=== PATIENT | male | born 1985 ===

== ENCOUNTER 2017-07-30 04:33 | Emergency (ER) | payer SELFPAY ==
[2017-07-30] MEDS ORDERED: Sodium Chloride 0.9% 1,000 ML IV STA (05:01)
--- NOTE | 2017-07-30 05:05 | ED PDOC ---
HPI: General Adult Time Seen by Provider: 07/30/17 04:50 Chief Complaint (Nursing): Abdominal Pain Chief Complaint (Provider): fever History Per: Patient History/Exam Limitations: no limitations Onset/Duration Of Symptoms: Hrs (14) Current Symptoms Are (Timing): Still Present Additional History Per: Patient Additional Complaint(s): 32 y/o male presents with fever x 14 hours. Patient states he was at work when fever started, took Tylenol then started developed generalized abdominal pain and vomiting. Patient also notes soft non bloody stools. Denies cough, congestion, chest pain, shortness of breath, palpitations, urinary symptoms, recent travel. Patients daughter sick with similar. Past Medical History Reviewed: Historical Data, Nursing Documentation, Vital Signs Vital Signs: Last Vital Signs Temp 101.9 F H 07/30/17 04:47 Pulse 106 H 07/30/17 04:47 Resp 18 07/30/17 04:47 BP 141/81 07/30/17 04:47 Pulse Ox 96 07/30/17 05:05 - Medical History PMH: No Chronic Diseases - Surgical History Surgical History: No Surg Hx - Family History Family History: States: No Known Family Hx - Living Arrangements Living Arrangements: With Family - Allergies Allergies/Adverse Reactions: Allergies Allergy/AdvReac Type Severity Reaction Status Date / Time shellfish derived Allergy RASH Verified 07/30/17 04:46 Review of Systems ROS Statement: Except As Marked, All Systems Reviewed And Found Negative Constitutional: Positive for: Fever, Chills Gastrointestinal: Positive for: Nausea, Vomiting, Abdominal Pain Physical Exam - Reviewed Nursing Documentation Reviewed: Yes Vital Signs Reviewed: Yes - Physical Exam Appears: Positive for: Well, Non-toxic, No Acute Distress Head Exam: Positive for: ATRAUMATIC, NORMAL INSPECTION, NORMOCEPHALIC Skin: Positive for: Normal Color Eye Exam: Positive for: Normal appearance ENT: Positive for: Normal ENT Inspection Cardiovascular/Chest: Positive for: Regular Rate, Rhythm Respiratory: Positive for: Normal Breath Sounds Gastrointestinal/Abdominal: Positive for: Normal Exam, Bowel Sounds, Soft Back: Positive for: Normal Inspection Extremity: Positive for: Normal ROM Neurologic/Psych: Positive for: Alert, Oriented - Laboratory Results Result Diagrams: 07/30/17 05:16 07/30/17 05:16 - ECG O2 Sat by Pulse Oximetry: 96 Disposition - Clinical Impression Clinical Impression: Abdominal pain, Fever - Disposition Disposition Time: 06:00 Condition: STABLE Forms: [employer] (Ukrainian)
[2017-07-30 05:28] LABS: VENOUS BLOOD GAS BASE EXCESS 1.8 mmol/L (0.0-2.0); VENOUS BLOOD GAS PCO2 37 mmHg (40-60); VENOUS BLOOD GAS PO2 48 mm/Hg (30-55); VENOUS BLOOD PH 7.45 (7.32-7.43)
[2017-07-30 05:38] LABS: BASO % 0.3 % (0.0-2.0); HEMOGLOBIN 15.4 g/dL (12.0-18.0); LYMPH # 1.3 K/uL (1.0-4.3); LYMPH % 7.7 % (20.0-40.0); MEAN CELL VOLUME 86.4 fl (80.0-94.0); MEAN CORPUSCULAR HEMOGLOBIN 29.4 pg (27.0-31.0); MEAN CORPUSCULAR HGB CONC 34.1 g/dL (33.0-37.0); MEAN PLATELET VOLUME 7.7 fl (7.2-11.7); MONO # 1.2 K/uL (0.0-0.8); MONO % 7.2 % (0.0-10.0); NEUT # 13.9 K/uL (1.8-7.0); NEUT % 84.8 % (50.0-75.0); NRBC % 0.4 % (0.0-0.0); PLATELET COUNT 233 K/uL (130-400); RBC 5.23 Mil/uL (4.40-5.90); RED CELL DISTRIBUTION WIDTH 13.2 % (11.5-14.5); WHITE BLOOD COUNT 16.4 K/uL (4.8-10.8)
[2017-07-30] MEDS ORDERED: Iohexol 240 (50 ml) PO ONE (06:05)
[2017-07-30 06:08] LABS: ALB/GLOB RATIO 1.4 (1.0-2.1); ALBUMIN 4.5 g/dL (3.5-5.0); ALT/SGPT 52 U/L (21-72); AST/SGOT 35 U/L (17-59); BLOOD UREA NITROGEN 15 mg/dl (9-20); CALCIUM 9.3 mg/dL (8.4-10.2); GFR AFRICAN-AMERICAN > 60; GFR NON-AFRICAN AMERICAN > 60; LIPASE 57 U/L (23-300)
[2017-07-30] MEDS ORDERED: Iohexol 240 (50 ml) ONE (06:45)
[2017-07-30 06:53] LABS: URINE BILIRUBIN NEGATIVE (NEGATIVE); URINE BLOOD NEGATIVE (NEGATIVE); URINE CLARITY SLIGHTY-CLOUDY (Clear); URINE COLOR YELLOW (YELLOW); URINE GLUCOSE (UA) NEG (Normal); URINE LEUKOCYTE ESTERASE NEG Leu/uL (Negative); URINE NITRATE NEGATIVE (NEGATIVE); URINE PROTEIN 30 mg/dL (NEGATIVE); URINE UROBILINOGEN 0.2-1.0 mg/dL (0.2-1.0)
[2017-07-30] MEDS ORDERED: Iohexol 300 100 ML IJ ONE (08:18)
[2017-07-30] MEDS ORDERED: Sodium Chloride 0.9% 50 ML IV ONE (08:19)
[2017-07-30 08:23] VITALS: RESP 14; O2SAT 100
--- NOTE | 2017-07-30 10:26 | CT ---
PROCEDURE: CT Abdomen and Pelvis with contrast HISTORY: fever, abd pain COMPARISON: None. TECHNIQUE: Contrast dose: 100 mL Omnipaque 300 Radiation dose: Total exam DLP = 993.17 mGy-cm. This CT exam was performed using one or more of the following dose reduction techniques: Automated exposure control, adjustment of the mA and/or kV according to patient size, and/or use of iterative reconstruction technique. FINDINGS: LOWER THORAX: Unremarkable. LIVER: Unremarkable. No gross lesion or ductal dilatation. GALLBLADDER AND BILE DUCTS: Unremarkable. PANCREAS: Unremarkable. No gross lesion or ductal dilatation. SPLEEN: Normal size. Incidental 7 mm nonspecific low attenuation lesion. ADRENALS: Unremarkable. No mass. KIDNEYS AND URETERS: Unremarkable. No hydronephrosis. No solid mass. VASCULATURE: Unremarkable. No aortic aneurysm. BOWEL: Mild sigmoid diverticulosis without evidence of diverticulitis. No bowel obstruction. APPENDIX: Normal appendix. PERITONEUM: Unremarkable. No free fluid. No free air. LYMPH NODES: Unremarkable. No enlarged lymph nodes. BLADDER: Nondistended REPRODUCTIVE: Normal prostate BONES: No acute fracture. OTHER FINDINGS: None. IMPRESSION: No acute abnormality. Sigmoid diverticulosis without evidence of diverticulitis.
--- NOTE | 2017-07-30 11:12 | ED PDOC ---
- Laboratory Results Result Diagrams: 07/30/17 05:16 07/30/17 05:16 - ECG O2 Sat by Pulse Oximetry: 100 Medical Decision Making Medical Decision Making: received patient from Dr. Patel. Patient here because of vomiting, diarrhea and abdominal pain. labs done. CT pending at shift change. patient is feeling better. He is hungry. Disposition Doctor Will See Patient In The: Office Counseled Patient/Family Regarding: Diagnosis, Need For Followup, Rx Given - Clinical Impression Clinical Impression: Abdominal pain, Fever - POA Present On Arrival: None - Disposition Disposition: Routine/Home Disposition Time: 11:00 Condition: STABLE Prescriptions: Bismuth Subsalicylate [Pepto Bismol] 262 mg PO Q4H PRN #20 ctb PRN Reason: Diarrhea Ondansetron [Zofran] 4 mg PO Q8H #9 tab Instructions: Gastroenteritis (ED) Forms: [facility] [facility] (Nauruan)
[2017-07-30 11:29] VITALS: BP 124/85; PULSE 74; TEMP 98.2
[2017-07-30 11:31] LABS: LYMPHOCYTE 7 % (20-50); MONOCYTE 6 % (0-10); NEUTROPHIL 87 % (42-75); PLATELET ESTIMATE NORMAL (NORMAL); TOTAL CELLS COUNTED 100
== END 2017-07-30 11:28 | disposition home or self-care (01) ==
LOC: H.ER 04:33
DX: K52.9 Noninfective gastroenteritis and colitis, unspecified (principal); R50.9 Fever, unspecified
CPT/HCPCS: 74177; 80053; 81003; 82803; 83690; 85025; 87804; 99284; J2405; J7040; Q9966; Q9967